=== PATIENT | male | born 1950 | race Caucasian/White ===

== ENCOUNTER 2017-01-22 21:43 | Inpatient (IN) | payer MEDICARE ==
[~2017-01-22] VITALS: Ht 182.9 cm; Wt 86.2 kg
[2017-01-22 22:00] VITALS: BP 143/82
[2017-01-22] MEDS ORDERED: Vancomycin 1.5gm/D5W 250ml 250 ML IVPB ONE (22:30)
[2017-01-22] MEDS ORDERED: Piperacillin/Tazobactam 3.375 GM in NS 110 ML IVPB ONE (22:30)
[2017-01-22] MEDS ORDERED: Zosyn 3.375gm inj ONE (22:43)
[2017-01-22 23:00] LABS: BASOPHILS % (AUTO) 1.3 % (0.0-2.0); EOSINOPHILS % (AUTO) 2.8 % (0.0-3.0); LYMPHOCYTES % (AUTO) 20.2 % (20.0-45.0); MEAN CORPUSCULAR HGB CONC 33.9 G/DL (32.0-36.0); MEAN CORPUSCULAR VOLUME 94 FL (80-99); MEAN PLATELET VOLUME 5.7 FL (6.5-10.1); MONOCYTES % (AUTO) 8.8 % (1.0-10.0); PLATELET COUNT 283 K/UL (150-450); RED BLOOD COUNT 4.41 M/UL (4.70-6.10); RED CELL DISTRIBUTION WIDTH 12.4 % (11.6-14.8); WHITE BLOOD COUNT 7.8 K/UL (4.8-10.8)
[2017-01-22] MEDS ORDERED: CEPHALEXIN500 M1 ORAL (23:05)
[2017-01-22 23:09] LABS: APPEARANCE,URINE CLEAR; KETONES,URINE NEGATIVE (NEGATIVE); LEUKOCYTE ESTERASE ,URINE NEGATIVE (NEGATIVE); NITRITE,URINE NEGATIVE (NEGATIVE); PH,URINE 7 (4.5-8.0); PROTEIN,URINE NEGATIVE (NEGATIVE); UROBILINOGEN,URINE NORMAL MG/DL (0.0-1.0)
[2017-01-22 23:12] LABS: WBC,URINE 0-2 /HPF (0 - 0)
[2017-01-22 23:13] LABS: RBC,URINE 15-20 /HPF (0 - 0)
[2017-01-22 23:16] VITALS: BP 127/91
--- NOTE | 2017-01-22 23:20 | Emergency Room Report ---
History of Present Illness General Chief Complaint: Lower Extremity Injury Source: Patient Present Illness HPI This is a 66-year-old male who [facility]. He has a history of lung cancer status post resection a three-quarter of his left lung. He also underwent 30 session no radiation. This occurred in 1996. He is no longer on any medication. No history of hypertension or diabetes. He has been getting therapy for prevention of vascular disease with SCD of his lower extremities. He developed a blister to his left lower extremity. About 7 days ago he got infected and his left leg became erythematous. He was placed on Keflex the last 5 days. Symptoms worsening. Now he has some purulent drainage. Erythema is also extending to his ankle. He has no fever or chills. No nausea no vomiting. Worse with walking. Mild pain. No other complaint. Allergies: Coded Allergies: No Known Allergies (Unverified , 01/22/17) Patient History Past Medical History: see triage record, old chart reviewed Past Surgical History: other Pertinent Family History: none Social History: Denies: smoking Immunizations: other Reviewed Nursing Documentation: PMH: Agreed, PSxH: Agreed Review of Systems Eye: Denies: blurred vision, eye pain ENT: Denies: ear pain, nose congestion, throat swelling Respiratory: Denies: cough, shortness of breath Cardiovascular: Denies: chest pain, palpitations Gastrointestinal: Denies: abdominal pain, diarrhea, nausea, vomiting Musculoskeletal: Denies: back pain, joint pain Skin: Reports: rash Neurological: Denies: headache, numbness Endocrine: Denies: increased thirst, increased urine Hematologic/Lymphatic: Denies: easy bruising All Other Systems: negative except mentioned in HPI Physical Exam Vital Signs Date Time Temp Pulse Resp B/P Pulse Ox O2 Delivery O2 Flow Rate FiO2 01/22/17 21:51 99.0 82 18 143/82 96 Room Air vitals unremarkable Sp02 EP Interpretation: reviewed, normal General Appearance: well appearing, no apparent distress, alert Head: normocephalic, atraumatic Eyes: bilateral eye EOMI, bilateral eye PERRL ENT: hearing grossly normal, normal pharynx Neck: full range of motion, supple, no meningismus Respiratory: chest non-tender, lungs clear, normal breath sounds Cardiovascular #1: regular rate, rhythm, no murmur Gastrointestinal: normal bowel sounds, non tender, no mass, no organomegaly, no bruit, non-distended Musculoskeletal: back normal, gait/station normal, normal range of motion, other - Left leg: He has extensive erythema from the proximal lower extremity extending to the ankle laterally. There are 3 area of ulceration approximately. One of them has center necrosis with scant discharge. Neurologic: alert, oriented x3 Psychiatric: mood/affect normal Skin: warm/dry Medical Decision Making Diagnostic Impression: Primary Impression: Cellulitis and abscess of left lower extremity ER Course Patient presents with cellulitis and early abscess of his lower extremity. No crepitance. No evidence of necrotizing fasciitis a deep abscess. No evidence of sepsis. This is most likely MRSA. Patient was placed on Zosyn for wider coverage and vancomycin to cover for MRSA. Because he failed outpatient antibiotics and infection worsening, he warrant admission for IV antibiotics. I cultured the wound. Lab Results Impression labs unremarkable Last Vital Signs Date Time Temp Pulse Resp B/P Pulse Ox O2 Delivery O2 Flow Rate FiO2 01/22/17 22:00 99.0 82 18 143/82 96 Room Air Status: improved Disposition: ADMITTED INPATIENT Condition: Serious Referrals: NOT CHOSEN FRANCESCA/,REFERRING (PCP) KAMILLE WASHINGTON M.D. Jan 22, 2017 23:20
[2017-01-22 23:21] LABS: ALANINE AMINOTRANSFERASE 18 U/L (3-41); ALBUMIN/GLOBULIN RATIO 1.2 (1.0-2.7); ANION GAP 10 (5-15); ASPARTATE AMINO TRANSFERASE 22 U/L (5-40); CALCIUM 9.5 mg/dL (8.6-10.2); CARBON DIOXIDE 30 mEQ/L (20-30); CHLORIDE 95 mEQ/L (98-107); GLOMERULAR FILTRATION RATE > 60 mL/min (>60); HEMOLYSIS 9; POTASSIUM 4.7 mEQ/L (3.4-4.9); SODIUM 135 mEQ/L (135-145); TOTAL PROTEIN 7.6 g/dL (6.6-8.7)
[2017-01-22 23:35] VITALS: BP 130/89
[2017-01-23 00:41] VITALS: BP 129/72
[2017-01-23] MEDS ORDERED: Acetaminophen 500mg (ES) tab ORAL PRN (00:45)
[2017-01-23] MEDS ORDERED: Norco 5mg/325mg tab ORAL PRN ×2 (00:45→06:45)
[2017-01-23] MEDS ORDERED: Zosyn 3.375gm inj ONE (05:04)
[2017-01-23] MEDS: Piperacillin/Tazobactam 3.375 GM in D5W 110 ML IVPB SCH ×2 (05:45→13:47)
[2017-01-23 08:14] VITALS: BP 127/75
[2017-01-23] MEDS: Heparin 5000 units/ml inj SUBQ SCH ×2 (10:00→22:02)
[2017-01-23] MEDS: Vancomycin 1gm/D5W 275ml IVPB SCH ×4 (10:58→22:38)
[2017-01-23] MEDS ORDERED: Vancomycin 1250mg/D5W 250ml IVPB SCH (11:00)
[2017-01-23 12:33] VITALS: BP 139/82
[2017-01-23 17:27] VITALS: BP 134/91
--- NOTE | 2017-01-23 18:08 | Infectious Diseases Prog Note ---
Assessment/Plan Assessment/Plan Full consult dictated: A) 1) left leg cellulitis with likely abscess, wounds noted and cultured 2) patient was getting therapy of legs to prevent vascular disease prior to above happening 3) hx lung ca and radiation tx and lung resection 4) allergies - negative 5) sh-past smoker, fh-nc, mar noted, notes and records reviewed 6) d/w RN P) 1) vancomycin and zosyn 2) surgery evaluation for possible I/D 3) check labs and wound culture 4) orders entered and noted 5) continue treatment per Dr. Cosby and consultants 6) thank you Subjective Allergies: Coded Allergies: No Known Allergies (Unverified , 01/22/17) Objective Vital Signs Last 24 Hour Vital Signs Date Time Temp Pulse Resp B/P Pulse Ox O2 Delivery O2 Flow Rate FiO2 01/23/17 17:27 97.7 63 18 134/91 97 Room Air 01/23/17 12:33 98.1 63 20 139/82 97 Room Air 01/23/17 08:14 97.5 66 18 127/75 96 Room Air 01/23/17 00:41 97.7 72 19 129/72 98 Room Air 01/22/17 23:40 98.7 74 16 130/89 100 Room Air 01/22/17 23:35 98.7 74 16 130/89 100 Room Air 01/22/17 23:16 98.8 80 16 127/91 100 Room Air 01/22/17 22:00 99.0 82 18 143/82 96 Room Air 01/22/17 21:51 99.0 82 18 143/82 96 Room Air Height (Feet): 6 Height (Inches): 0.00 Weight (Pounds): 190 Microbiology Date/Time Source Procedure Growth Status 01/22/17 22:15 Other Gram Stain - Final Resulted 01/22/17 22:15 Other Wound Culture Pending Resulted Laboratory Tests Test 01/22/17 22:35 01/22/17 22:50 White Blood Count 7.8 K/UL (4.8-10.8) Red Blood Count 4.41 M/UL (4.70-6.10) L Hemoglobin 14.1 G/DL (14.2-18.0) L Hematocrit 41.6 % (42.0-52.0) L Mean Corpuscular Volume 94 FL (80-99) Mean Corpuscular Hemoglobin 32.0 PG (27.0-31.0) H Mean Corpuscular Hemoglobin Concent 33.9 G/DL (32.0-36.0) Red Cell Distribution Width 12.4 % (11.6-14.8) Platelet Count 283 K/UL (150-450) Mean Platelet Volume 5.7 FL (6.5-10.1) L Neutrophils (%) (Auto) 67.0 % (45.0-75.0) Lymphocytes (%) (Auto) 20.2 % (20.0-45.0) Monocytes (%) (Auto) 8.8 % (1.0-10.0) Eosinophils (%) (Auto) 2.8 % (0.0-3.0) Basophils (%) (Auto) 1.3 % (0.0-2.0) Sodium Level 135 mEQ/L (135-145) Potassium Level 4.7 mEQ/L (3.4-4.9) Chloride Level 95 mEQ/L (98-107) L Carbon Dioxide Level 30 mEQ/L (20-30) Anion Gap 10 (5-15) Blood Urea Nitrogen 20 mg/dL (7-23) Creatinine 1.0 mg/dL (0.7-1.2) Estimat Glomerular Filtration Rate > 60 mL/min (>60) Glucose Level 97 mg/dL (74-106) Lactic Acid Level 0.50 mmol/L (0.66-2.22) L Calcium Level 9.5 mg/dL (8.6-10.2) Total Bilirubin 0.4 mg/dL (0.0-1.2) Aspartate Amino Transf (AST/SGOT) 22 U/L (5-40) Alanine Aminotransferase (ALT/SGPT) 18 U/L (3-41) Alkaline Phosphatase 75 U/L (40-129) Total Protein 7.6 g/dL (6.6-8.7) Albumin 4.2 g/dL (3.5-5.2) Globulin 3.4 g/dL Albumin/Globulin Ratio 1.2 (1.0-2.7) Urine Color Pale yellow Urine Appearance Clear Urine pH 7 (4.5-8.0) Urine Specific [place] 1.010 (1.005-1.035) Urine Protein Negative (NEGATIVE) Urine Glucose (UA) Negative (NEGATIVE) Urine Ketones Negative (NEGATIVE) Urine Occult Blood 4+ (NEGATIVE) H Urine Nitrite Negative (NEGATIVE) Urine Bilirubin Negative (NEGATIVE) Urine Urobilinogen Normal MG/DL (0.0-1.0) Urine Leukocyte Esterase Negative (NEGATIVE) Urine RBC 15-20 /HPF (0 - 0) H Urine WBC 0-2 /HPF (0 - 0) Urine Squamous Epithelial Cells None /LPF (NONE/OCC) Urine Bacteria None /HPF (NONE) Current Medications Medications (Trade) Dose Ordered Sig/Fe Route PRN Reason Start Time Stop Time Status Last Admin Dose Admin Acetaminophen 500 mg 500 mg Q4H PRN ORAL Mild Pain/Temp > 100.5 01/23/17 00:45 02/22/17 00:44 Acetaminophen/ Hydrocodone Bitart ([place] 5/325) 1 tab Q6H PRN ORAL For Moderate to Severe Pain 01/23/17 06:45 01/30/17 06:44 Dextrose (Dextrose 50%) STAT PRN IV Hypoglycemia 01/23/17 00:45 02/22/17 00:44 Heparin Sodium (Porcine) (Heparin 5000 units/ml) 5,000 units EVERY 12 HOURS SUBQ 01/23/17 09:00 02/22/17 08:59 01/23/17 10:00 Piperacillin Sod/ Tazobactam Sod/ Dextrose (Zosyn/D5W) 110 ml @ 27.5 mls/hr EVERY 8 HOURS IVPB 01/23/17 06:00 01/28/17 05:59 01/23/17 13:47 Vancomycin HCl 1 ea 1 ea DAILY PRN MISC Per rx protocol 01/23/17 00:45 02/22/17 00:44 Vancomycin HCl/ Dextrose (Vancomycin/D5W) 275 ml @ 183.708 mls/hr Q12H IVPB 01/23/17 11:00 01/28/17 10:59 01/23/17 10:58 ANA MARIE Jan 23, 2017 18:07
--- NOTE | 2017-01-23 18:51 | History & Physical ---
History and Physical History & Physicial H&P dictated [id number] Dx: LLE cellulitis surgery consult adriana espinal and vannesa ID recs appreciated MAGUE BECKER M.D. Jan 23, 2017 18:51
--- NOTE | 2017-01-23 19:51 | General Progress Note ---
Progress Note Progress Note Chart reviewed, pt examined, consult dictated. Impression: cellulitis of the left lower leg, no obvious abscess. Plan: IV antibiotics and leg elevation for now. Ferdinand Limon MD Jan 23, 2017 19:51
[2017-01-23 20:00] VITALS: BP 131/87
--- NOTE | 2017-01-23 23:00 | History and Physical Report ---
DATE OF ADMISSION: 01/22/2017 REASON FOR ADMISSION: Left leg cellulitis. HISTORY OF PRESENT ILLNESS: This is a pleasant 66-year-old patient with history of hyperlipidemia and multiple surgeries related to bone injuries, who presents to the hospital with left leg cellulitis that started on Thursday and has been getting worse. He states he has a history of lung cancer status post resection 3/4 of his left lung in 1996. He states he had a blister developed over his left lower extremity about a week ago and it popped and eventually his left leg became more red. He was started on Keflex on Thursday at an outpatient clinic without any improvement. He is having some purulent drainage. He denies any fevers or chills. He states that erythema as well as the swelling over the left leg started near the blister site and has extended. PAST MEDICAL HISTORY: Includes hyperlipidemia and history of lung cancer status post resection. PAST SURGICAL HISTORY: Left knee pinning, left hip pinning, and right shoulder reconstruction. ALLERGIES: No known drug allergies. SOCIAL HISTORY: Former smoker. Former alcoholic, who quit. 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 REVIEW OF SYSTEMS: A 12-point review of systems is negative except for pertinent positives as mentioned above. PHYSICAL EXAMINATION: VITAL SIGNS: Temperature is 98.1 degrees, pulse 62, respiratory rate 20, blood pressure 139/82, and O2 saturation is 97% on room air. GENERAL: No acute distress. The patient is awake. HEENT: Normocephalic/atraumatic. NECK: Supple. No JVD. LUNGS: Clear to auscultation bilaterally. Decreased breath sounds over the left upper lung. CARDIOVASCULAR: Regular rate and rhythm. Normal S1 and S2. ABDOMEN: Soft, nontender, and nondistended. EXTREMITIES: Left leg cellulitis with two ruptured blisters seen. No fluctuance on my exam. SKIN: Left leg cellulitis with two blisters seen as above. NEURO: The patient can move all extremities and is awake. PSYCH: Appropriate mood and affect. LABORATORY DATA: CBC, white count of 7.8, hemoglobin of 14.1, and platelet count of 283,000. BMP, sodium 135, potassium 4.7, chloride is 95, CO2 is 30, BUN 20, and creatinine 1. Lactic acid of 0.5. UA is 15 to 20 RBCs and +4 occult blood. ASSESSMENT: 1. Left leg cellulitis. 2. History of lung cancer status post resection of the left lung. 3. Hematuria. 4. History of multiple bone fractures. PLAN: 1. The patient will be admitted to Med/Surg. 2. Vancomycin and Zosyn. 3. Surgery consult with Dr. Limon to see if left leg needs to have an incision and drainage. 4. ID consult with Dr. Torres. 5. Follow up wound culture. Christiano Lopez MD DR: HUBERT JOB#: [id number] CC:
--- NOTE | 2017-01-23 23:30 | Consultation ---
DATE OF CONSULTATION: 01/23/2017 REASON FOR CONSULTATION: Cellulitis of left leg. HISTORY OF PRESENT ILLNESS: This 66-year-old white male who [facility] has been getting therapy for peripheral vascular disease. He is in a program that utilizes sequential compression devices of the lower extremities. The patient developed a blister to the left lower leg about seven days ago which became infected. He was placed on Keflex for the past five days. These symptoms have been worsening. He reported some spontaneous purulent drainage from one of the blisters. He denies any symptoms of fever or chills. PAST MEDICAL HISTORY: Significant for carcinoma of the left lung, he underwent thoracoscopic resection. According to the patient 2/3 of the lung followed by 30 radiation section. He has not required any chemotherapy and apparently is disease free. ALLERGIES: NONE KNOWN. MEDICATIONS: None. FAMILY HISTORY: The patient mother of cancer, the type known to the patient. SOCIAL HISTORY: The patient quit smoking two years ago. He smoked [id number] packs per day for approximately 35 years. Alcohol, the patient quit drinking in 2000. REVIEW OF SYSTEMS: Negative for angina or asthma. He has some elements of peripheral vascular disease but states he can walk for numerous blocks. Denies symptoms of claudication. PHYSICAL EXAMINATION: GENERAL: Reveals a slender white male, in no acute distress. VITAL SIGNS: Temperature 97.7, blood pressure 134/91, pulse 63, respirations 18. HEENT: Normocephalic. Pupils are equal and reactive to light. There was no scleral icterus. NECK: Supple without adenopathy. LUNGS: Clear. There is a healed left thoracoscopy scar. ABDOMEN: Soft. No organomegaly. EXTREMITIES: Erythema of the lateral calf with three shallow ulcers. There was no fluctuance. There was no pus expressible from the ulcers. Peripheral pulses were present but decreased. LABORATORY AND DIAGNOSTIC DATA: CBC yesterday showed a white blood count of 7800, hemoglobin 14.1 grams percent, hematocrit 41.6%, platelet count 283,000. Serum electrolytes showed a sodium of 135, potassium 4.7, chloride 95, bicarbonate 30, BUN 20, creatinine 1.0, glucose 97. Total bilirubin 0.4, SGOT 18, SGPT 22, alkaline phosphatase 75. IMPRESSION: Cellulitis of the left lower leg, doubt abscess formation. PLAN: 1. The patient will continue with IV antibiotics for now. 2. We may need to consider a soft tissue ultrasound of the left leg. Ferdinand Limon M.D. DR: Zoë JOB#: [id number] CC:
[2017-01-24] VITALS: BP 134/76
--- NOTE | 2017-01-24 | Consultation ---
DATE OF CONSULTATION: 01/23/2017 INFECTIOUS DISEASE CONSULTATION CONSULTING PHYSICIAN: Christiano Lopez M.D. REASON FOR CONSULTATION: Left leg abscess, cellulitis, and possible infected wound. CHIEF COMPLAINT: The patient's chief complaint coming in to the hospital with cellulitis and abscess of the left leg. HISTORY OF PRESENT ILLNESS: This is a very pleasant 66-year-old male, who comes into [facility] with left leg swelling and redness. The patient states that he has been getting therapy for ____ vascular disease of lower extremities. The patient noted to have redness and erythema of left leg and took Keflex without improvement. The patient presents to [facility] what looks like abscess and cellulitis of left leg. There is significant cellulitis and possible induration and fluctuance. Infectious Disease consultation has been requested for antibiotic management. The patient is on vancomycin and Zosyn. The patient does have wounds that are fairly clean that had been cultured also. MAR was noted. Orders were noted. Notes and records were reviewed. Case was discussed with the patient and the RN. REVIEW OF SYSTEMS: Constitutional: The patient has generalized weakness and fatigue, but no fever, chills, night sweats, or weight loss. Head And Neck: No head pain or neck pain. Cardiac: No chest pain. GI: No nausea, vomiting, or diarrhea. Genitourinary: No dysuria or frequency. No Wills. Pulmonary: No congestion or rales. Cardiac: No chest pain or palpitations. Skin: No rash. Neurological: No seizures. No dysphagia or thrush. PAST MEDICAL HISTORY: The patient has a past medical history of lung cancer, status post resection and radiation treatment. He denies any history of diabetes or hypertension. No history of CVA or cardiac disease. ALLERGIES: No known drug allergies. FAMILY HISTORY: Noncontributory. SOCIAL HISTORY: Past smoker, but has quit. No alcohol or drug abuse. FAMILY HISTORY: Noncontributory. No mention of exposure to tuberculosis or cancer. MEDICATIONS: Upon reviewing the MAR, he is on the following medications. He is on subcutaneous heparin. He is on vancomycin, hydrocodone, Zosyn, IV fluids, and acetaminophen. PHYSICAL EXAMINATION: GENERAL: Alert, responsive, and in no acute distress. He is oriented x3 VITAL SIGNS: Temperature is 97.7 degrees, pulse rate 63, respiratory rate 18, blood pressure 134/91, and saturation 97%. HEAD AND NECK: Oral exam, no thrush. Eye exam, no icterus. Normocephalic. No facial droop. No neck stiffness. HEART: Regular. No gallop or murmur. ABDOMEN: Supple. Positive bowel sounds and nontender. LUNGS: Clear bilaterally. No rhonchi or rales. SKIN: No rash or dermatitis. MUSCULOSKELETAL: No effusion or contractures. EXTREMITIES: Left leg erythema and redness with induration and fluctuance consistent with possible early abscess. PERIPHERAL VASCULAR: No cyanosis or gangrene. RECTAL: Deferred. GENITOURINARY: No Wills. LINES: Line sites without phlebitis. NEUROLOGIC: Nonfocal. Alert and oriented x3. LABORATORY DATA: Wound culture is pending. Creatinine is 1.0, white count 7.8, and hemoglobin 14.1. Urinalysis was low at 0 to 2 white cells. Leukocyte esterase negative. ASSESSMENT AND PLAN: 1. The patient has left leg cellulitis likely early abscess based on exam. The patient is on vancomycin and Zosyn. Wound cultures obtained. There is a question of underlying wound infection also. Continue vancomycin and Zosyn for methicillin resistant Staphylococcus aureus and gram-negative coverage and check wound culture. I would strongly consider surgical evaluation for possible incision and drainage and possible early abscess. Continue antibiotics. Check culture. Check labs. 2. History of lung cancer, status post resection and radiation treatment. 3. No history of diabetes, hypertension, cerebrovascular accident, or cardiac disease. 4. Pain management per primary, Dr. Lopez. 5. Allergies are negative. 6. Positive for smoking. 7. Family history is noncontributory. 8. MAR was noted. 9. Case was discussed with RN. 10. Continue treatment per Dr. Lopez and consultants. 11. Notes were reviewed. 12. Orders were entered. Chicho Torres M.D. DR: JO JOB#: [id number] CC:
[2017-01-24] MEDS: Piperacillin/Tazobactam 3.375 GM in D5W 110 ML IVPB SCH ×3 (01:11→13:36)
--- NOTE | 2017-01-24 02:39 | Wound Care Consultation ---
Wound Assessment Wound Assessment : Wound Number: #1 Wound Present on Admission: Yes New Wound: No Status Change of Wound: No Wound Location Body Site Modif: left, lower Wound Location Body Site: leg Alberto Test: Does not Alberto Edema Degree: 3+ deep indentation Wound Thickness: Full Thickness - with scattered open wounds Wound Drainage Description: Serosanguineous Wound Drainage Amount: Scant Wound Drainage Odor: None/Absent Tissue Surrounding Wound: Indurated Wound General Appearance: Reddened, Draining Wound Comment #1 Left leg cellulitis with scattered open wounds Recommendation -Keep clean and dry -Optimize nutrition -Elevate lower legs -Local wound care as ordered -Assess and f/u accordingly for any changes ISHA MANCIA RN Jan 24, 2017 02:39
[2017-01-24 04:00] VITALS: BP 126/81
[2017-01-24 07:35] LABS: APPEARANCE,URINE CLEAR; KETONES,URINE NEGATIVE (NEGATIVE); LEUKOCYTE ESTERASE ,URINE NEGATIVE (NEGATIVE); NITRITE,URINE NEGATIVE (NEGATIVE); PH,URINE 7 (4.5-8.0); PROTEIN,URINE NEGATIVE (NEGATIVE); UROBILINOGEN,URINE NORMAL MG/DL (0.0-1.0)
[2017-01-24 07:47] LABS: BACTERIA,URINE OCCASIONAL /HPF; WBC,URINE 0-2 /HPF (0 - 0)
[2017-01-24] MEDS: Heparin 5000 units/ml inj SUBQ SCH ×2 (08:25→20:18)
[2017-01-24 08:48] VITALS: BP 115/82
[2017-01-24 09:03] LABS: EOSINOPHILS % (AUTO) 5.9 % (0.0-3.0); LYMPHOCYTES % (AUTO) 22.6 % (20.0-45.0); MEAN CORPUSCULAR HEMOGLOBIN 31.6 PG (27.0-31.0); MEAN CORPUSCULAR HGB CONC 33.2 G/DL (32.0-36.0); MEAN CORPUSCULAR VOLUME 95 FL (80-99); MEAN PLATELET VOLUME 5.7 FL (6.5-10.1); MONOCYTES % (AUTO) 9.4 % (1.0-10.0); NEUTROPHILS % (AUTO) 61.1 % (45.0-75.0); PLATELET COUNT 307 K/UL (150-450); RED BLOOD COUNT 4.59 M/UL (4.70-6.10); RED CELL DISTRIBUTION WIDTH 12.1 % (11.6-14.8); WHITE BLOOD COUNT 4.6 K/UL (4.8-10.8)
[2017-01-24 09:15] LABS: ANION GAP 9 (5-15); CALCIUM 8.9 mg/dL (8.6-10.2); CARBON DIOXIDE 28 mEQ/L (20-30); CHLORIDE 100 mEQ/L (98-107); GLOMERULAR FILTRATION RATE > 60 mL/min (>60); HEMOLYSIS 2; POTASSIUM 4.3 mEQ/L (3.4-4.9); SODIUM 137 mEQ/L (135-145)
[2017-01-24] MEDS: Vancomycin 1gm/D5W 275ml IVPB SCH ×4 (12:02→23:50)
[2017-01-24 12:38] VITALS: BP 121/87
--- NOTE | 2017-01-24 12:41 | General Progress Note ---
Progress Note Progress Note Afebrile, VSS. pt denies pain in left leg, he is able to ambulate, no drainage from dressings. CBC okay. There is no need for surgical drainage at this time. Ferdinand Limon MD Jan 24, 2017 12:41
--- NOTE | 2017-01-24 13:24 | Internal Med Progress Note ---
Subjective Date of Service: Jan 24, 2017 Physician Name Rony Farrell Attending Physician Christiano Lopez M.D. Current Medications Medications (Trade) Dose Ordered Sig/Fe Route PRN Reason Start Time Stop Time Status Last Admin Dose Admin Acetaminophen 500 mg 500 mg Q4H PRN ORAL Mild Pain/Temp > 100.5 01/23/17 00:45 02/22/17 00:44 Acetaminophen/ Hydrocodone Bitart ([place] 5/325) 1 tab Q6H PRN ORAL For Moderate to Severe Pain 01/23/17 06:45 01/30/17 06:44 Dextrose (Dextrose 50%) STAT PRN IV Hypoglycemia 01/23/17 00:45 02/22/17 00:44 Heparin Sodium (Porcine) (Heparin 5000 units/ml) 5,000 units EVERY 12 HOURS SUBQ 01/23/17 09:00 02/22/17 08:59 01/24/17 08:25 Piperacillin Sod/ Tazobactam Sod/ Dextrose (Zosyn/D5W) 110 ml @ 27.5 mls/hr EVERY 8 HOURS IVPB 01/23/17 06:00 01/28/17 05:59 01/24/17 04:54 Vancomycin HCl 1 ea 1 ea DAILY PRN MISC Per rx protocol 01/23/17 00:45 02/22/17 00:44 Vancomycin HCl/ Dextrose (Vancomycin/D5W) 275 ml @ 183.708 mls/hr Q12H IVPB 01/23/17 11:00 01/28/17 10:59 01/24/17 12:02 Allergies: Coded Allergies: No Known Allergies (Unverified , 01/22/17) ROS Limited/Unobtainable: No Constitutional: Reports: no symptoms HEENT: Reports: no symptoms Cardiovascular: Reports: no symptoms Respiratory: Reports: no symptoms Gastrointestinal/Abdominal: Reports: no symptoms Genitourinary: Reports: no symptoms Neurologic/Psychiatric: Reports: no symptoms Subjective 66 YO M admitted with abscess and cellulitis left leg. Cover for Int Med-Dr Lopez. Objective Last Vital Signs Date Time Temp Pulse Resp B/P Pulse Ox O2 Delivery O2 Flow Rate FiO2 01/24/17 12:38 97.7 78 18 121/87 96 Room Air Laboratory Tests Test 01/24/17 05:00 01/24/17 07:01/24/17 10:30 Urine Color Pale yellow Urine Appearance Clear Urine pH 7 (4.5-8.0) Urine Specific [place] 1.005 (1.005-1.035) Urine Protein Negative (NEGATIVE) Urine Glucose (UA) Negative (NEGATIVE) Urine Ketones Negative (NEGATIVE) Urine Occult Blood 3+ (NEGATIVE) H Urine Nitrite Negative (NEGATIVE) Urine Bilirubin Negative (NEGATIVE) Urine Urobilinogen Normal MG/DL (0.0-1.0) Urine Leukocyte Esterase Negative (NEGATIVE) Urine RBC 5-10 /HPF (0 - 0) H Urine WBC 0-2 /HPF (0 - 0) Urine Squamous Epithelial Cells None /LPF (NONE/OCC) Urine Bacteria Occasional /HPF (NONE) White Blood Count 4.6 K/UL (4.8-10.8) L Red Blood Count 4.59 M/UL (4.70-6.10) L Hemoglobin 14.5 G/DL (14.2-18.0) Hematocrit 43.7 % (42.0-52.0) Mean Corpuscular Volume 95 FL (80-99) Mean Corpuscular Hemoglobin 31.6 PG (27.0-31.0) H Mean Corpuscular Hemoglobin Concent 33.2 G/DL (32.0-36.0) Red Cell Distribution Width 12.1 % (11.6-14.8) Platelet Count 307 K/UL (150-450) Mean Platelet Volume 5.7 FL (6.5-10.1) L Neutrophils (%) (Auto) 61.1 % (45.0-75.0) Lymphocytes (%) (Auto) 22.6 % (20.0-45.0) Monocytes (%) (Auto) 9.4 % (1.0-10.0) Eosinophils (%) (Auto) 5.9 % (0.0-3.0) H Basophils (%) (Auto) 1.0 % (0.0-2.0) Sodium Level 137 mEQ/L (135-145) Potassium Level 4.3 mEQ/L (3.4-4.9) Chloride Level 100 mEQ/L (98-107) Carbon Dioxide Level 28 mEQ/L (20-30) Anion Gap 9 (5-15) Blood Urea Nitrogen 12 mg/dL (7-23) Creatinine 1.0 mg/dL (0.7-1.2) Estimat Glomerular Filtration Rate > 60 mL/min (>60) Glucose Level 93 mg/dL (74-106) Calcium Level 8.9 mg/dL (8.6-10.2) Vancomycin Level Trough 13.2 ug/mL (5.0-12.0) H Microbiology Date/Time Source Procedure Growth Status 01/22/17 22:35 Blood Blood Culture - Preliminary NO GROWTH AFTER 24 HOURS Resulted 01/22/17 21:15 Blood Blood Culture - Preliminary NO GROWTH AFTER 24 HOURS Resulted 01/22/17 22:15 Other Gram Stain - Final Resulted 01/22/17 22:15 Wound Culture - Preliminary Staphylococcus Aureus Resulted Intake and Output 01/23/17 01/24/17 18:59 06:59 Intake Total 780 ml 85426.208 ml Balance 780 ml 04386.208 ml Intake Oral 780 ml 600 ml IV Total 56563.208 ml # Voids 2 Objective General: alert, cooperative, no distress, appears stated age Head: normocephalic, without obvious abnormality, atraumatic Eyes: conjunctivae/corneas clear. PERRL, EOM's intact Throat: lips, mucosa, and tongue normal. MMM Neck: supple, symmetrical, trachea midline, and no JVD Lungs: clear to auscultation bilaterally Heart: regular rate and rhythm, S1, S2 normal, no murmur, click, rub or gallop Abdomen: soft, non-tender, non-distended, bowel sounds normal; no masses or organomegaly Extremities: erythema left leg/lateral calf; extremities normal, atraumatic, no cyanosis or edema Pulses: 2+ and symmetric Skin: skin color, texture, turgor normal; no rashes or lesions Neurologic: grossly normal, no focal deficits Assessment/Plan Problem List: (1) Staph aureus infection Assessment & Plan: Await sensitivities. Continue vanco and zosyn per ID (2) Lung cancer Assessment & Plan: S/P resection and chemotherapy (3) Cellulitis and abscess of left lower extremity Assessment & Plan: Cont wound care. Non surgical per surgery. Cont vanco and zosyn per ID Status: progressing RONY FARRELL Jan 24, 2017 13:24
--- NOTE | 2017-01-24 15:04 | Infectious Diseases Prog Note ---
Assessment/Plan Assessment/Plan A) 1) staph aureus left leg cellulitis/wound infection, clinically improved, no obvious abscess, surgery noted reviewed 2) patient was getting therapy of legs to prevent vascular disease prior to above happening 3) hx lung ca and radiation tx and lung resection 4) allergies - negative 5) sh-past smoker, fh-nc, mar noted, notes and records reviewed 6) d/w RN P) 1) continue vancomycin, discontinue zosyn 2) check wound culture to rule out mrsa 3) check labs and wound culture 4) orders entered and noted 5) continue treatment per Dr. Cosby and surgery Subjective Constitutional: Denies: fever HEENT: Denies: congestion Respiratory: Denies: shortness of breath Cardiovascular: Denies: chest pain Gastrointestinal/Abdominal: Denies: diarrhea, nausea, vomiting Genitourinary: Denies: dysuria, hematuria Neurologic: Denies: headache Psychiatric: Denies: depression Skin: Denies: rash Hematologic: Denies: bleeding Musculoskeletal: Reports: other - less leftl lung pain, Denies: pain Allergies: Coded Allergies: No Known Allergies (Unverified , 01/22/17) Objective Vital Signs Last 24 Hour Vital Signs Date Time Temp Pulse Resp B/P Pulse Ox O2 Delivery O2 Flow Rate FiO2 01/24/17 12:38 97.7 78 18 121/87 96 Room Air 01/24/17 08:48 97.0 87 19 115/82 97 Room Air 01/24/17 04:00 97.6 61 18 126/81 99 Room Air 01/24/17 00:00 97.5 69 18 134/76 98 Room Air 01/23/17 20:00 97.1 67 18 131/87 99 Room Air 01/23/17 17:27 97.7 63 18 134/91 97 Room Air Height (Feet): 6 Height (Inches): 0.00 Weight (Pounds): 190 General Appearance: no acute distress HEENT: normocephalic, atraumatic, anicteric, mucous membranes moist, PERRL, EOMI, pharynx normal, supple, no JVD Respiratory/Chest: lungs clear, normal breath sounds, no respiratory distress, no accessory muscle use Cardiovascular: normal rate, regular rhythm, no gallop/murmur, no JVD Abdomen: normal bowel sounds, soft, non tender, no organomegaly, non distended Genitourinary: other - no borja Extremities: no cyanosis, other - left leg with less redness and warmth, less induration Skin: no rash 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, alert, oriented x 3, responsive Lymphatic: no neck adenopathy Musculoskeletal: no effusion Objective none Microbiology Date/Time Source Procedure Growth Status 01/22/17 22:35 Blood Blood Culture - Preliminary NO GROWTH AFTER 24 HOURS Resulted 01/22/17 21:15 Blood Blood Culture - Preliminary NO GROWTH AFTER 24 HOURS Resulted 01/22/17 22:15 Other Gram Stain - Final Resulted 01/22/17 22:15 Wound Culture - Preliminary Staphylococcus Aureus Resulted Laboratory Tests Test 01/24/17 05:00 01/24/17 07:22 01/24/17 10:30 Urine Color Pale yellow Urine Appearance Clear Urine pH 7 (4.5-8.0) Urine Specific [place] 1.005 (1.005-1.035) Urine Protein Negative (NEGATIVE) Urine Glucose (UA) Negative (NEGATIVE) Urine Ketones Negative (NEGATIVE) Urine Occult Blood 3+ (NEGATIVE) H Urine Nitrite Negative (NEGATIVE) Urine Bilirubin Negative (NEGATIVE) Urine Urobilinogen Normal MG/DL (0.0-1.0) Urine Leukocyte Esterase Negative (NEGATIVE) Urine RBC 5-10 /HPF (0 - 0) H Urine WBC 0-2 /HPF (0 - 0) Urine Squamous Epithelial Cells None /LPF (NONE/OCC) Urine Bacteria Occasional /HPF (NONE) White Blood Count 4.6 K/UL (4.8-10.8) L Red Blood Count 4.59 M/UL (4.70-6.10) L Hemoglobin 14.5 G/DL (14.2-18.0) Hematocrit 43.7 % (42.0-52.0) Mean Corpuscular Volume 95 FL (80-99) Mean Corpuscular Hemoglobin 31.6 PG (27.0-31.0) H Mean Corpuscular Hemoglobin Concent 33.2 G/DL (32.0-36.0) Red Cell Distribution Width 12.1 % (11.6-14.8) Platelet Count 307 K/UL (150-450) Mean Platelet Volume 5.7 FL (6.5-10.1) L Neutrophils (%) (Auto) 61.1 % (45.0-75.0) Lymphocytes (%) (Auto) 22.6 % (20.0-45.0) Monocytes (%) (Auto) 9.4 % (1.0-10.0) Eosinophils (%) (Auto) 5.9 % (0.0-3.0) H Basophils (%) (Auto) 1.0 % (0.0-2.0) Sodium Level 137 mEQ/L (135-145) Potassium Level 4.3 mEQ/L (3.4-4.9) Chloride Level 100 mEQ/L (98-107) Carbon Dioxide Level 28 mEQ/L (20-30) Anion Gap 9 (5-15) Blood Urea Nitrogen 12 mg/dL (7-23) Creatinine 1.0 mg/dL (0.7-1.2) Estimat Glomerular Filtration Rate > 60 mL/min (>60) Glucose Level 93 mg/dL (74-106) Calcium Level 8.9 mg/dL (8.6-10.2) Vancomycin Level Trough 13.2 ug/mL (5.0-12.0) H Current Medications Medications (Trade) Dose Ordered Sig/Fe Route PRN Reason Start Time Stop Time Status Last Admin Dose Admin Acetaminophen 500 mg 500 mg Q4H PRN ORAL Mild Pain/Temp > 100.5 01/23/17 00:45 02/22/17 00:44 Acetaminophen/ Hydrocodone Bitart ([place] 5/325) 1 tab Q6H PRN ORAL For Moderate to Severe Pain 01/23/17 06:45 01/30/17 06:44 Dextrose (Dextrose 50%) STAT PRN IV Hypoglycemia 01/23/17 00:45 02/22/17 00:44 Docusate Sodium (Colace) 100 mg TWICE A DAY ORAL 01/24/17 18:00 02/23/17 17:59 Fish Oil (Fish Oil) 1,000 mg DAILY ORAL 01/24/17 14:00 02/23/17 13:59 01/24/17 13:36 Heparin Sodium (Porcine) (Heparin 5000 units/ml) 5,000 units EVERY 12 HOURS SUBQ 01/23/17 09:00 02/22/17 08:59 01/24/17 08:25 Multivitamins (Multivitamins) 1 tab DAILY ORAL 01/24/17 14:00 02/23/17 13:59 01/24/17 13:36 Pantoprazole (Protonix) 40 mg DAILY ORAL 01/24/17 14:00 02/23/17 13:59 01/24/17 13:36 Piperacillin Sod/ Tazobactam Sod/ Dextrose (Zosyn/D5W) 110 ml @ 27.5 mls/hr EVERY 8 HOURS IVPB 01/23/17 06:00 01/28/17 05:59 01/24/17 13:36 Vancomycin HCl 1 ea 1 ea DAILY PRN MISC Per rx protocol 01/23/17 00:45 02/22/17 00:44 Vancomycin HCl/ Dextrose (Vancomycin/D5W) 275 ml @ 183.708 mls/hr Q12H IVPB 01/23/17 11:00 01/28/17 10:59 01/24/17 12:02 ANA MARIE Jan 24, 2017 15:04
--- NOTE | 2017-01-24 15:45 | Consultation ---
DATE OF CONSULTATION: 01/24/2017 CONSULTING PHYSICIAN: Homar Jackson M.D. REFERRING PHYSICIAN: Christiano Lopez M.D. REASON FOR CONSULTATION: Evaluation of hematuria. HISTORY OF PRESENT ILLNESS: This is a pleasant 66-year-old male, who was admitted to the hospital, because of left lower extremity cellulitis. The patient has a history of lung cancer. Apparently, he has lower extremity blisters and ulcers and he is having treatment for this and he developed an infection. Incidentally, he was noted to have microhematuria on his urinalysis. Urology evaluation requested. He denies flank pain. He denies gross hematuria. He is able to void. He has occasional urinary frequency. PAST MEDICAL HISTORY: Significant for above, hyperlipidemia, and lung cancer. PAST SURGICAL HISTORY: He has had left knee surgery, pinning, shoulder reconstruction. CURRENT MEDICATIONS: In the hospital, the patient is on vancomycin, heparin, Zosyn, and Tylenol. ALLERGIES: No known drug allergies. SOCIAL HISTORY: He quit smoking. He usually gets treated at the [facility]. FAMILY HISTORY: Noncontributory. REVIEW OF SYSTEMS: As above. PHYSICAL EXAMINATION: GENERAL: This is a well-developed and well-nourished male, in no acute distress. VITAL SIGNS: Temperature is 97.0 degrees, blood pressure 115/82, pulse 87, and respirations 19. HEENT: Normocephalic. NECK: Supple. ABDOMEN: Soft. BACK: No CVA tenderness. GENITOURINARY: Normal genitalia. RECTAL: Reveals a firm prostate about 40 grams. EXTREMITIES: No clubbing or cyanosis. LABORATORY DATA: White count 4.6, hemoglobin 14.5, and platelets are 307,000. BUN is 12, creatinine 1.0, and potassium 4.3. UA showed 5 to 10 RBCs. DIAGNOSTIC IMAGING: None here at [facility]. IMPRESSION: 1. Microhematuria. 2. Benign prostatic hypertrophy. 3. Urinary frequency. 4. Neurogenic bladder. PLAN AND DISCUSSION: Again, the patient does have microhematuria, which needs to be worked up. We will order renal ultrasound to check and at some point we need to have cystoscopy to complete the workup. His voiding symptoms were monitored. I will follow the patient. Any other recommendations will be forthcoming. Homar Jackson M.D. DR: DIAN JOB#: [id number] CC:
[2017-01-24 16:33] VITALS: BP 131/82
[2017-01-24] MEDS: Docusate 100mg cap ORAL SCH (17:24)
[2017-01-24 20:00] VITALS: BP 128/85
[2017-01-25] VITALS: BP 126/80
[2017-01-25 04:00] VITALS: BP 130/91
[2017-01-25 07:55] LABS: EOSINOPHILS % (AUTO) 6.4 % (0.0-3.0); LYMPHOCYTES % (AUTO) 25.3 % (20.0-45.0); MEAN CORPUSCULAR HGB CONC 32.7 G/DL (32.0-36.0); MEAN CORPUSCULAR VOLUME 95 FL (80-99); MEAN PLATELET VOLUME 5.8 FL (6.5-10.1); MONOCYTES % (AUTO) 10.2 % (1.0-10.0); NEUTROPHILS % (AUTO) 57.2 % (45.0-75.0); PLATELET COUNT 285 K/UL (150-450); RED BLOOD COUNT 4.62 M/UL (4.70-6.10); WHITE BLOOD COUNT 4.9 K/UL (4.8-10.8)
[2017-01-25 08:06] VITALS: BP 124/84
[2017-01-25 08:08] LABS: ANION GAP 11 (5-15); CARBON DIOXIDE 26 mEQ/L (20-30); CHLORIDE 102 mEQ/L (98-107); CREATININE 0.8 mg/dL (0.7-1.2); GLOMERULAR FILTRATION RATE > 60 mL/min (>60); HEMOLYSIS 2; POTASSIUM 4.2 mEQ/L (3.4-4.9); SODIUM 139 mEQ/L (135-145)
[2017-01-25] MEDS: Docusate 100mg cap ORAL SCH ×2 (09:03→17:25)
[2017-01-25] MEDS: Heparin 5000 units/ml inj SUBQ SCH ×2 (09:04→22:02)
[2017-01-25] MEDS: Vancomycin 1gm/D5W 275ml IVPB SCH ×4 (11:30→21:57)
[2017-01-25 12:00] VITALS: BP 135/98
--- NOTE | 2017-01-25 12:31 | Urology Progress Note ---
Assessment/Plan Assessment/Plan 1. Microhematuria. 2. Benign prostatic hypertrophy. 3. Urinary frequency. 4. Neurogenic bladder. monitor clinically f/u on renal u/s cysto later Subjective Allergies: Coded Allergies: No Known Allergies (Unverified , 01/22/17) Subjective all noted, feels fair Objective Last 24 Hour Vital Signs Date Time Temp Pulse Resp B/P Pulse Ox O2 Delivery O2 Flow Rate FiO2 01/25/17 12:00 98.1 73 20 135/98 98 Room Air 01/25/17 08:06 98.2 89 19 124/84 98 Room Air 01/25/17 04:00 97.3 60 18 130/91 98 Room Air 01/25/17 00:00 97.8 70 18 126/80 97 Room Air 01/24/17 20:00 97.9 76 18 128/85 98 Room Air 01/24/17 16:33 97.9 72 18 131/82 98 Room Air 01/24/17 12:38 97.7 78 18 121/87 96 Room Air Intake and Output 01/24/17 01/25/17 19:00 07:00 Intake Total 394.916 ml 275.000 ml Balance 394.916 ml 275.000 ml IV Total 394.916 ml 275.000 ml # Voids 4 Microbiology Date/Time Source Procedure Growth Status 01/22/17 22:35 Blood Blood Culture - Preliminary NO GROWTH AFTER 48 HOURS Resulted 01/22/17 22:15 Other Gram Stain - Final Complete 01/22/17 22:15 Wound Culture - Final Staphylococcus Aureus - Mrsa Complete Current Medications Medications (Trade) Dose Ordered Sig/Fe Route PRN Reason Start Time Stop Time Status Last Admin Dose Admin Acetaminophen 500 mg 500 mg Q4H PRN ORAL Mild Pain/Temp > 100.5 01/23/17 00:45 02/22/17 00:44 01/24/17 21:32 Acetaminophen/ Hydrocodone Bitart ([place] 5/325) 1 tab Q6H PRN ORAL For Moderate to Severe Pain 01/23/17 06:45 01/30/17 06:44 Dextrose (Dextrose 50%) STAT PRN IV Hypoglycemia 01/23/17 00:45 02/22/17 00:44 Docusate Sodium (Colace) 100 mg TWICE A DAY ORAL 01/24/17 18:00 02/23/17 17:59 01/25/17 09:03 Fish Oil (Fish Oil) 1,000 mg DAILY ORAL 01/24/17 14:00 02/23/17 13:59 01/25/17 09:03 Heparin Sodium (Porcine) (Heparin 5000 units/ml) 5,000 units EVERY 12 HOURS SUBQ 01/23/17 09:00 02/22/17 08:59 01/25/17 09:04 Multivitamins (Multivitamins) 1 tab DAILY ORAL 01/24/17 14:00 02/23/17 13:59 01/25/17 09:03 Pantoprazole (Protonix) 40 mg DAILY ORAL 01/24/17 14:00 02/23/17 13:59 01/25/17 09:03 Vancomycin HCl (Vanco rx to dose) 1 ea DAILY PRN MISC Per rx protocol 01/23/17 00:45 02/22/17 00:44 Vancomycin HCl/ Dextrose (Vancomycin/D5W) 275 ml @ 183.708 mls/hr Q12H IVPB 01/23/17 11:00 01/28/17 10:59 01/25/17 11:30 Laboratory Tests 01/25/17 06:50: White Blood Count 4.9, Red Blood Count 4.62L, Hemoglobin 14.3, Hematocrit 43.9, Mean Corpuscular Volume 95, Mean Corpuscular Hemoglobin 31.0, Mean Corpuscular Hemoglobin Concent 32.7, Red Cell Distribution Width 12.0, Platelet Count 285, Mean Platelet Volume 5.8L, Neutrophils (%) (Auto) 57.2, Lymphocytes (%) (Auto) 25.3, Monocytes (%) (Auto) 10.2H, Eosinophils (%) (Auto) 6.4H, Basophils (%) ( Auto) 1.0, Sodium Level 139, Potassium Level 4.2, Chloride Level 102, Carbon Dioxide Level 26, Anion Gap 11, Blood Urea Nitrogen 11, Creatinine 0.8, Estimat Glomerular Filtration Rate > 60, Glucose Level 94, Calcium Level 9.0 Height (Feet): 6 Height (Inches): 0.00 Weight (Pounds): 190 Objective exam stable renal u/s pending THERON LEO Jan 25, 2017 12:31
--- NOTE | 2017-01-25 12:55 | General Progress Note ---
Progress Note Progress Note Afebrile. Pt is feeling better. Left lower leg looks bobbin cleaner hand, erythema and swelling are decreased. There is no need for surgical debridement. Wound cultures grew MRSA. He will continue on antibiotics for now. Ferdinand Limon MD Jan 25, 2017 12:55
--- NOTE | 2017-01-25 13:48 | Internal Med Progress Note ---
Subjective Date of Service: Jan 25, 2017 Physician Name Rony Farrell Attending Physician Christiano Lopez M.D. Current Medications Medications (Trade) Dose Ordered Sig/Fe Route PRN Reason Start Time Stop Time Status Last Admin Dose Admin Acetaminophen 500 mg 500 mg Q4H PRN ORAL Mild Pain/Temp > 100.5 01/23/17 00:45 02/22/17 00:44 01/24/17 21:32 Acetaminophen/ Hydrocodone Bitart ([place] 5/325) 1 tab Q6H PRN ORAL For Moderate to Severe Pain 01/23/17 06:45 01/30/17 06:44 Dextrose (Dextrose 50%) STAT PRN IV Hypoglycemia 01/23/17 00:45 02/22/17 00:44 Docusate Sodium (Colace) 100 mg TWICE A DAY ORAL 01/24/17 18:00 02/23/17 17:59 01/25/17 09:03 Fish Oil (Fish Oil) 1,000 mg DAILY ORAL 01/24/17 14:00 02/23/17 13:59 01/25/17 09:03 Heparin Sodium (Porcine) (Heparin 5000 units/ml) 5,000 units EVERY 12 HOURS SUBQ 01/23/17 09:00 02/22/17 08:59 01/25/17 09:04 Multivitamins (Multivitamins) 1 tab DAILY ORAL 01/24/17 14:00 02/23/17 13:59 01/25/17 09:03 Pantoprazole (Protonix) 40 mg DAILY ORAL 01/24/17 14:00 02/23/17 13:59 01/25/17 09:03 Vancomycin HCl (Vanco rx to dose) 1 ea DAILY PRN MISC Per rx protocol 01/23/17 00:45 02/22/17 00:44 Vancomycin HCl/ Dextrose (Vancomycin/D5W) 275 ml @ 183.708 mls/hr Q12H IVPB 01/23/17 11:00 01/28/17 10:59 01/25/17 11:30 Allergies: Coded Allergies: No Known Allergies (Unverified , 01/22/17) ROS Limited/Unobtainable: No Constitutional: Reports: no symptoms HEENT: Reports: no symptoms Cardiovascular: Reports: no symptoms Respiratory: Reports: no symptoms Gastrointestinal/Abdominal: Reports: no symptoms Genitourinary: Reports: no symptoms Neurologic/Psychiatric: Reports: no symptoms Subjective 66 YO M admitted with abscess and cellulitis left leg. Cover for Int Med-Dr Lopez. Objective Last Vital Signs Date Time Temp Pulse Resp B/P Pulse Ox O2 Delivery O2 Flow Rate FiO2 01/25/17 12:00 98.1 73 20 135/98 98 Room Air Laboratory Tests Test 01/25/17 06:50 White Blood Count 4.9 K/UL (4.8-10.8) Red Blood Count 4.62 M/UL (4.70-6.10) L Hemoglobin 14.3 G/DL (14.2-18.0) Hematocrit 43.9 % (42.0-52.0) Mean Corpuscular Volume 95 FL (80-99) Mean Corpuscular Hemoglobin 31.0 PG (27.0-31.0) Mean Corpuscular Hemoglobin Concent 32.7 G/DL (32.0-36.0) Red Cell Distribution Width 12.0 % (11.6-14.8) Platelet Count 285 K/UL (150-450) Mean Platelet Volume 5.8 FL (6.5-10.1) L Neutrophils (%) (Auto) 57.2 % (45.0-75.0) Lymphocytes (%) (Auto) 25.3 % (20.0-45.0) Monocytes (%) (Auto) 10.2 % (1.0-10.0) H Eosinophils (%) (Auto) 6.4 % (0.0-3.0) H Basophils (%) (Auto) 1.0 % (0.0-2.0) Sodium Level 139 mEQ/L (135-145) Potassium Level 4.2 mEQ/L (3.4-4.9) Chloride Level 102 mEQ/L (98-107) Carbon Dioxide Level 26 mEQ/L (20-30) Anion Gap 11 (5-15) Blood Urea Nitrogen 11 mg/dL (7-23) Creatinine 0.8 mg/dL (0.7-1.2) Estimat Glomerular Filtration Rate > 60 mL/min (>60) Glucose Level 94 mg/dL (74-106) Calcium Level 9.0 mg/dL (8.6-10.2) Microbiology Date/Time Source Procedure Growth Status 01/22/17 22:35 Blood Blood Culture - Preliminary NO GROWTH AFTER 48 HOURS Resulted 01/22/17 21:15 Blood Blood Culture - Preliminary NO GROWTH AFTER 48 HOURS Resulted 01/22/17 22:15 Other Gram Stain - Final Complete 01/22/17 22:15 Wound Culture - Final Staphylococcus Aureus - Mrsa Complete Intake and Output 01/24/17 01/25/17 19:00 07:00 Intake Total 394.916 ml 275.000 ml Balance 394.916 ml 275.000 ml IV Total 394.916 ml 275.000 ml # Voids 4 Objective General: alert, cooperative, no distress, appears stated age Head: normocephalic, without obvious abnormality, atraumatic Eyes: conjunctivae/corneas clear. PERRL, EOM's intact Throat: lips, mucosa, and tongue normal. MMM Neck: supple, symmetrical, trachea midline, and no JVD Lungs: clear to auscultation bilaterally Heart: regular rate and rhythm, S1, S2 normal, no murmur, click, rub or gallop Abdomen: soft, non-tender, non-distended, bowel sounds normal; no masses or organomegaly Extremities: erythema left leg/lateral calf; extremities normal, atraumatic, no cyanosis or edema Pulses: 2+ and symmetric Skin: skin color, texture, turgor normal; no rashes or lesions Neurologic: grossly normal, no focal deficits Assessment/Plan Problem List: (1) Staph aureus infection Assessment & Plan: MRSA. Continue vanco and zosyn per ID (2) Lung cancer Assessment & Plan: S/P resection and chemotherapy (3) Cellulitis and abscess of left lower extremity Assessment & Plan: Cont wound care. Non surgical per surgery. Cont vanco and zosyn per ID Status: not improved RONY FARRELL Jan 25, 2017 13:48
[2017-01-25 16:00] VITALS: BP 131/94
[2017-01-25 20:00] VITALS: BP 115/93
[2017-01-26] VITALS: BP 140/72
[2017-01-26 04:00] VITALS: BP 129/80
[2017-01-26 08:00] VITALS: BP 120/69
[2017-01-26] MEDS: Docusate 100mg cap ORAL SCH (08:39)
[2017-01-26] MEDS: Heparin 5000 units/ml inj SUBQ SCH (08:49)
--- NOTE | 2017-01-26 11:36 | Internal Med Progress Note ---
Subjective Date of Service: Jan 26, 2017 Physician Name Rony Farrell Attending Physician Christiano Lopez M.D. Current Medications Medications (Trade) Dose Ordered Sig/Fe Route PRN Reason Start Time Stop Time Status Last Admin Dose Admin Acetaminophen 500 mg 500 mg Q4H PRN ORAL Mild Pain/Temp > 100.5 01/23/17 00:45 02/22/17 00:44 01/24/17 21:32 Acetaminophen/ Hydrocodone Bitart ([place] 5/325) 1 tab Q6H PRN ORAL For Moderate to Severe Pain 01/23/17 06:45 01/30/17 06:44 Dextrose (Dextrose 50%) STAT PRN IV Hypoglycemia 01/23/17 00:45 02/22/17 00:44 Docusate Sodium (Colace) 100 mg TWICE A DAY ORAL 01/24/17 18:00 02/23/17 17:59 01/26/17 08:39 Fish Oil (Fish Oil) 1,000 mg DAILY ORAL 01/24/17 14:00 02/23/17 13:59 01/26/17 08:40 Heparin Sodium (Porcine) (Heparin 5000 units/ml) 5,000 units EVERY 12 HOURS SUBQ 01/23/17 09:00 02/22/17 08:59 01/26/17 08:49 Multivitamins (Multivitamins) 1 tab DAILY ORAL 01/24/17 14:00 02/23/17 13:59 01/26/17 08:32 Pantoprazole (Protonix) 40 mg DAILY ORAL 01/24/17 14:00 02/23/17 13:59 01/26/17 08:32 Vancomycin HCl (Vanco rx to dose) 1 ea DAILY PRN MISC Per rx protocol 01/23/17 00:45 02/22/17 00:44 Vancomycin HCl/ Dextrose (Vancomycin/D5W) 275 ml @ 183.708 mls/hr Q12H IVPB 01/23/17 11:00 01/28/17 10:59 01/25/17 21:57 Allergies: Coded Allergies: No Known Allergies (Unverified , 01/22/17) ROS Limited/Unobtainable: No Constitutional: Reports: no symptoms HEENT: Reports: no symptoms Cardiovascular: Reports: no symptoms Respiratory: Reports: no symptoms Gastrointestinal/Abdominal: Reports: no symptoms Genitourinary: Reports: no symptoms Subjective 66 YO M admitted with abscess and cellulitis left leg. Cover for [facility]-Dr Lopez. Await discharge home today Objective Last Vital Signs Date Time Temp Pulse Resp B/P Pulse Ox O2 Delivery O2 Flow Rate FiO2 01/26/17 04:00 97.9 65 18 129/80 98 Room Air Intake and Output 01/25/17 01/26/17 19:00 07:00 Intake Total 500 ml Balance 500 ml Intake Oral 500 ml # Voids 3 Objective General: alert, cooperative, no distress, appears stated age Head: normocephalic, without obvious abnormality, atraumatic Eyes: conjunctivae/corneas clear. PERRL, EOM's intact Throat: lips, mucosa, and tongue normal. MMM Neck: supple, symmetrical, trachea midline, and no JVD Lungs: clear to auscultation bilaterally Heart: regular rate and rhythm, S1, S2 normal, no murmur, click, rub or gallop Abdomen: soft, non-tender, non-distended, bowel sounds normal; no masses or organomegaly Extremities: erythema left leg/lateral calf; extremities normal, atraumatic, no cyanosis or edema Pulses: 2+ and symmetric Skin: skin color, texture, turgor normal; no rashes or lesions Neurologic: grossly normal, no focal deficits Assessment/Plan Problem List: (1) Staph aureus infection Assessment & Plan: MRSA. Continue vanco per ID (2) Lung cancer Assessment & Plan: S/P resection and chemotherapy (3) Cellulitis and abscess of left lower extremity Assessment & Plan: Cont wound care. Non surgical per surgery. Cont vanco per ID Status: stable Assessment/Plan Discharge home on Bactrim D/S BID for 7 days. F/U at [facility] in 1 week RONY FARRELL Jan 26, 2017 11:36
[2017-01-26] MEDS ORDERED: BACTRIM DS TAB1 EAC1 ORAL (11:47)
[2017-01-26] MEDS: Vancomycin 1gm/D5W 275ml IVPB SCH ×2 (12:00)
--- NOTE | 2017-01-26 12:00 | General Progress Note ---
Progress Note Progress Note Surgery: doing well. no acute events. cellulitis resolving. ABX as per primary team Keep leg elevated when possible okay to d/c from surgical standpoint Bharat Montoya Jan 26, 2017 12:00
--- NOTE | 2017-01-26 12:36 | Infectious Diseases Prog Note ---
Assessment/Plan Assessment/Plan A) 1) mrsa left leg cellulitis/wound infection, clinically improved, no obvious abscess, surgery noted reviewed 2) patient was getting therapy of legs to prevent vascular disease prior to above happening 3) hx lung ca and radiation tx and lung resection 4) allergies - negative 5) sh-past smoker, fh-nc, mar noted, notes and records reviewed 6) d/w RN P) 1) on vancomycin 2) can discharge on bactrim x 7 days 3) check labs and wound culture 4) orders entered and noted 5) continue treatment per Dr. Cosby and surgery 6) d/w Dr. Velazquez and surgery, no I/D needed per surgery Subjective Constitutional: Denies: fever HEENT: Denies: congestion Respiratory: Denies: shortness of breath Cardiovascular: Denies: chest pain Gastrointestinal/Abdominal: Denies: nausea, vomiting Genitourinary: Denies: dysuria Neurologic: Denies: headache Psychiatric: Denies: depression Hematologic: Denies: bleeding Musculoskeletal: Reports: other - less left leg pain, Denies: pain Allergies: Coded Allergies: No Known Allergies (Unverified , 01/22/17) Objective Vital Signs Last 24 Hour Vital Signs Date Time Temp Pulse Resp B/P Pulse Ox O2 Delivery O2 Flow Rate FiO2 01/26/17 04:00 97.9 65 18 129/80 98 Room Air 01/26/17 00:00 97.0 60 18 140/72 97 Room Air 01/25/17 20:00 97.7 72 18 115/93 98 Room Air 01/25/17 16:00 97.9 67 19 131/94 98 Room Air Height (Feet): 6 Height (Inches): 0.00 Weight (Pounds): 190 General Appearance: no acute distress HEENT: normocephalic, atraumatic, anicteric, mucous membranes moist, PERRL, EOMI, pharynx normal, supple, no JVD Respiratory/Chest: lungs clear, normal breath sounds, no respiratory distress, no accessory muscle use Cardiovascular: normal rate, regular rhythm, no gallop/murmur, no JVD Abdomen: normal bowel sounds, soft, non tender, no organomegaly, non distended Genitourinary: other - no borja Extremities: no cyanosis, other - significantly less left leg redness, no obvious abscess Skin: no rash Neurologic/Psychiatric: loans officer II-XII grossly normal, alert, responsive Lymphatic: no neck adenopathy Musculoskeletal: no effusion Objective none Microbiology Date/Time Source Procedure Growth Status 01/22/17 22:35 Blood Blood Culture - Preliminary NO GROWTH AFTER 72 HOURS Resulted 01/22/17 22:15 Other Gram Stain - Final Complete 01/22/17 22:15 Wound Culture - Final Staphylococcus Aureus - Mrsa Complete Labs Test 01/24/17 05:00 01/24/17 07:22 01/24/17 10:30 01/25/17 06:50 Urine Color Pale yellow Urine Appearance Clear Urine pH 7 (4.5-8.0) Urine Specific [place] 1.005 (1.005-1.035) Urine Protein Negative (NEGATIVE) Urine Glucose (UA) Negative (NEGATIVE) Urine Ketones Negative (NEGATIVE) Urine Occult Blood 3+ (NEGATIVE) Urine Nitrite Negative (NEGATIVE) Urine Bilirubin Negative (NEGATIVE) Urine Urobilinogen Normal MG/DL (0.0-1.0) Urine Leukocyte Esterase Negative (NEGATIVE) Urine RBC 5-10 /HPF (0 - 0) Urine WBC 0-2 /HPF (0 - 0) Urine Squamous Epithelial Cells None /LPF (NONE/OCC) Urine Bacteria Occasional /HPF (NONE) White Blood Count 4.6 K/UL (4.8-10.8) 4.9 K/UL (4.8-10.8) Red Blood Count 4.59 M/UL (4.70-6.10) 4.62 M/UL (4.70-6.10) Hemoglobin 14.5 G/DL (14.2-18.0) 14.3 G/DL (14.2-18.0) Hematocrit 43.7 % (42.0-52.0) 43.9 % (42.0-52.0) Mean Corpuscular Volume 95 FL (80-99) 95 FL (80-99) Mean Corpuscular Hemoglobin 31.6 PG (27.0-31.0) 31.0 PG (27.0-31.0) Mean Corpuscular Hemoglobin Concent 33.2 G/DL (32.0-36.0) 32.7 G/DL (32.0-36.0) Red Cell Distribution Width 12.1 % (11.6-14.8) 12.0 % (11.6-14.8) Platelet Count 307 K/UL (150-450) 285 K/UL (150-450) Mean Platelet Volume 5.7 FL (6.5-10.1) 5.8 FL (6.5-10.1) Neutrophils (%) (Auto) 61.1 % (45.0-75.0) 57.2 % (45.0-75.0) Lymphocytes (%) (Auto) 22.6 % (20.0-45.0) 25.3 % (20.0-45.0) Monocytes (%) (Auto) 9.4 % (1.0-10.0) 10.2 % (1.0-10.0) Eosinophils (%) (Auto) 5.9 % (0.0-3.0) 6.4 % (0.0-3.0) Basophils (%) (Auto) 1.0 % (0.0-2.0) 1.0 % (0.0-2.0) Sodium Level 137 mEQ/L (135-145) 139 mEQ/L (135-145) Potassium Level 4.3 mEQ/L (3.4-4.9) 4.2 mEQ/L (3.4-4.9) Chloride Level 100 mEQ/L (98-107) 102 mEQ/L (98-107) Carbon Dioxide Level 28 mEQ/L (20-30) 26 mEQ/L (20-30) Anion Gap 9 (5-15) 11 (5-15) Blood Urea Nitrogen 12 mg/dL (7-23) 11 mg/dL (7-23) Creatinine 1.0 mg/dL (0.7-1.2) 0.8 mg/dL (0.7-1.2) Estimat Glomerular Filtration Rate > 60 mL/min (>60) > 60 mL/min (>60) Glucose Level 93 mg/dL (74-106) 94 mg/dL (74-106) Calcium Level 8.9 mg/dL (8.6-10.2) 9.0 mg/dL (8.6-10.2) Vancomycin Level Trough 13.2 ug/mL (5.0-12.0) Current Medications Medications (Trade) Dose Ordered Sig/Fe Route PRN Reason Start Time Stop Time Status Last Admin Dose Admin Acetaminophen 500 mg 500 mg Q4H PRN ORAL Mild Pain/Temp > 100.5 01/23/17 00:45 02/22/17 00:44 01/24/17 21:32 Acetaminophen/ Hydrocodone Bitart (Arnot 5/325) 1 tab Q6H PRN ORAL For Moderate to Severe Pain 01/23/17 06:45 01/30/17 06:44 Dextrose (Dextrose 50%) STAT PRN IV Hypoglycemia 01/23/17 00:45 02/22/17 00:44 Docusate Sodium (Colace) 100 mg TWICE A DAY ORAL 01/24/17 18:00 02/23/17 17:59 01/26/17 08:39 Fish Oil (Fish Oil) 1,000 mg DAILY ORAL 01/24/17 14:00 02/23/17 13:59 01/26/17 08:40 Heparin Sodium (Porcine) (Heparin 5000 units/ml) 5,000 units EVERY 12 HOURS SUBQ 01/23/17 09:00 02/22/17 08:59 01/26/17 08:49 Multivitamins (Multivitamins) 1 tab DAILY ORAL 01/24/17 14:00 02/23/17 13:59 01/26/17 08:32 Pantoprazole (Protonix) 40 mg DAILY ORAL 01/24/17 14:00 02/23/17 13:59 01/26/17 08:32 Vancomycin HCl (Vanco rx to dose) 1 ea DAILY PRN MISC Per rx protocol 01/23/17 00:45 02/22/17 00:44 Vancomycin HCl/ Dextrose (Vancomycin/D5W) 275 ml @ 183.708 mls/hr Q12H IVPB 01/23/17 11:00 01/28/17 10:59 01/26/17 12:00 ANA MARIE Jan 26, 2017 12:36
[2017-01-26] MEDS ORDERED: NS 275ml ONE (13:22)
[2017-01-26] MEDS ORDERED: Tubing IV Secondary IV ONE (13:22)
--- NOTE | 2017-01-26 14:55 | Urology Progress Note ---
Assessment/Plan Assessment/Plan 1. Microhematuria. 2. Benign prostatic hypertrophy. 3. Urinary frequency. 4. Neurogenic bladder. monitor clinically f/u on renal u/s or do as outpt cysto later check urine cytology as outpt Subjective Allergies: Coded Allergies: No Known Allergies (Unverified , 01/22/17) Subjective all noted, feels fair, pt seen earlier today Objective Last 24 Hour Vital Signs Date Time Temp Pulse Resp B/P Pulse Ox O2 Delivery O2 Flow Rate FiO2 01/26/17 04:00 97.9 65 18 129/80 98 Room Air 01/26/17 00:00 97.0 60 18 140/72 97 Room Air 01/25/17 20:00 97.7 72 18 115/93 98 Room Air 01/25/17 16:00 97.9 67 19 131/94 98 Room Air Intake and Output 01/25/17 01/26/17 19:00 07:00 Intake Total 500 ml Balance 500 ml Intake Oral 500 ml # Voids 3 Microbiology Date/Time Source Procedure Growth Status 01/22/17 22:35 Blood Blood Culture - Preliminary NO GROWTH AFTER 72 HOURS Resulted 01/22/17 22:15 Other Gram Stain - Final Complete 01/22/17 22:15 Wound Culture - Final Staphylococcus Aureus - Mrsa Complete Height (Feet): 6 Height (Inches): 0.00 Weight (Pounds): 190 Objective exam stable renal u/s pending THERON LEO Jan 26, 2017 14:55
--- NOTE | 2017-01-27 07:55 | Discharge Summary ---
Discharge Summary Hospital Course Date of Admission Jan 22, 2017 at 22:33 Date of Discharge Jan 26, 2017 at 13:23 Admitting Diagnosis cellulitis/abscess left leg HPI Rebel Gonzalez is a 66 year old male who was admitted on Jan 22, 2017 at 22:33 for Cellulitis/Abscess Left Leg Hospital Course dc summary #[id number] Discharge Medications Continued Medications: Trimethoprim/Sulfamethoxazole 160/800* (Bactrim Ds Tablet*) 1 Each Tablet 1 TAB ORAL BID for 7 Days, #14 TAB Discontinued Medications: Cephalexin* (Cephalexin*) 500 Mg Tablet 500 MG ORAL EVERY 6 HOURS, CAP Discharge Discharge Disposition Patient was discharged to Home (01) Discharge Diagnoses: Discharge Instructions Discharge Instructions Special Instructions I have been assigned to complete a D/C Summary on this account. I was not involved in the patient management Art AnandAshley casarez NP Jan 27, 2017 07:55
--- NOTE | 2017-01-27 17:00 | Discharge Summary 2 SIG ---
DATE OF ADMISSION: 01/22/2017 DATE OF DISCHARGE: 01/26/2017 REASON FOR ADMISSION: This is a 66-year-old male with history of hyperlipidemia and multiple surgeries related to bone injury and bone fracture as well as the history of lung cancer status post most of lung resection and radiation, presented with left leg redness, swelling, and pain. Apparently, the patient was started as an outpatient on oral antibiotic Keflex. However, he did not see any improvement. He noted some purulent drainage. He denied fever or chills. He came to emergency room for evaluation. In the emergency department, the patient had no fever. No leukocytosis. Laboratory work was unremarkable. The patient admitted for IV antibiotics. ADMITTING DIAGNOSES: 1. Left leg cellulitis. 2. History of lung carcinoma. 3. Hematuria. 4. History of multiple bone fracture. Of note, urinalysis revealed +3 occult blood, 5 to 10 RBC. SHORT HOSPITAL STAY: The patient admitted to Med/Surg floor. The patient started on empiric antibiotics. ID and Surgery consult was requested. Surgery was consulted regarding need for incision and drainage. Surgeon seen and evaluated the patient. The patient had clinical evidence of cellulitis. Recommended continue IV antibiotic. They closely monitored the patient, but without any abscess formation. Infectious Disease doctor followed the patient closely. The patient was on empiric antibiotic initially, wound culture back with MRSA. Antibiotic changed based on sensitivity. Blood culture were negative. The patient clinically improved and was discharged home on Bactrim for additional seven days. Urology seen and evaluated the patient due to the evidence of hematuria in urinalysis. Per Urology, the patient needs to be monitored clinically. He has microhematuria, but no gross hematuria. He recommended renal ultrasound, the cystoscopy as outpatient as well as the urine cytology. Hemoglobin and hematocrit are stable. The patient has no evidence of anemia. According to urologist, the patient also has a BPH and neurogenic bladder. The patient recommended to follow up with the urologist as outpatient. The patient clinically improved with IV antibiotics, afebrile. No leukocytosis. Decreased edema, erythema. No pain. The patient was stable for discharge. DISCHARGE DIAGNOSES: 1. Left leg cellulitis with methicillin-resistant Staphylococcus aureus. 2. History of lung carcinoma with resection and radiation. 3. Microhematuria (stable hemoglobin and hematocrit). 4. History of multiple bone surgery. 5. Benign prostatic hypertrophy. 6. Neurogenic bladder. DISCHARGE MEDICATIONS: See medication reconciliation list. The patient needs to continue Bactrim for additional seven days as outpatient per ID recommendation. DISCHARGE INSTRUCTIONS: The patient discharged home. FOLLOWUP: Followup with the primary medical doctor and urologist. Christiano Lopez MD I have been assigned to dictate discharge summary on this account and I was not involved in the patient's management. Ashley Espanastony brook [facility] hospitalGopi N.PSara DR: JAY JOB#: [id number] CC:
== END 2017-01-26 13:23 | disposition home or self-care (01) | DRG 603 ==
LOC: EMR 22:10 → 4W 22:33 → EDBEDREQ 23:21
DX: L03.116 Cellulitis of left lower limb (principal); N31.9 Neuromuscular dysfunction of bladder, unspecified; Z85.118 Personal history of other malignant neoplasm of bronchus and lung; Z90.2 Acquired absence of lung [part of]; E78.5 Hyperlipidemia, unspecified; Z87.891 Personal history of nicotine dependence; F10.21 Alcohol dependence, in remission; B95.62 Methicillin resistant Staphylococcus aureus infection as the cause of diseases classified elsewhere; Z92.3 Personal history of irradiation; N40.0 Benign prostatic hyperplasia without lower urinary tract symptoms; R31.29 Other microscopic hematuria
CPT/HCPCS: 36415; 80048; 80053; 80202; 81001; 81003; 83605; 85025; 87040; 87070; 87181; 87205